=== PATIENT | male | born 1945 | race Hispanic/Latino ===

== ENCOUNTER 2017-04-02 08:57 | Day surgery (SDC) | payer MEDICARE, BC ==
[2017-03-29 12:19] VITALS: BMI 28.3
[2017-04-02] MEDS ORDERED: Sodium Chloride 0.9% 1,000 ML IV SCH (10:00)
[2017-04-02] MEDS ORDERED: Propofol 10 mg/ml Inj (20 ML) ONE (10:45)
[2017-04-02 12:55] VITALS: BP 126/81; PULSE 81; RESP 16; TEMP 97.5; O2SAT 99
== END 2017-04-02 13:08 | disposition home or self-care (01) ==
LOC: ENDO 08:57
PROVIDERS: ATTEND Internal Medicine Gastroenterology
DX: K57.30 Diverticulosis of large intestine without perforation or abscess without bleeding (principal); K64.8 Other hemorrhoids; E11.9 Type 2 diabetes mellitus without complications; I10 Essential (primary) hypertension
CPT/HCPCS: 45378; 82948; J2001; J2704; J7040

== ENCOUNTER 2017-07-19 15:16 | Emergency (ER) | payer MEDICARE, BC ==
[2017-07-19 15:35] VITALS: RESP 18; TEMP 98.2
[2017-07-19 15:38] VITALS: BMI 27.9
[2017-07-19] MEDS ORDERED: Sodium Chloride 0.9% 500 ML IV STA (16:06)
[2017-07-19 16:24] LABS: BASO # 0.04 K/mm3 (0.0-2.0); EOS # 0.1 (0.0-0.7); EOS % 3.5 % (1.5-5.0); GRAN # 2.43 (1.4-6.5); GRAN % 60.4 % (50.0-68.0); HEMOGLOBIN 13.1 g/dL (14.0-18.0); LYMPH % 24.4 % (22.0-35.0); MEAN CORPUSCULAR HGB CONC 34.4 g/dl (31.0-37.0); MEAN PLATELET VOLUME 9.6 fl (7.0-11.0); MONO # 0.4 (0.1-0.6); MONO % 10.7 % (1.0-6.0); RBC 3.85 10^6/uL (3.5-6.1); RED CELL DISTRIBUTION WIDTH 13.6 % (11.5-14.5)
[2017-07-19 16:40] LABS: ALB/GLOB RATIO 1.5 (1.1-1.8); ALBUMIN 4.2 g/dL (3.0-4.8); ALT/SGPT 49 U/L (7-56); AST/SGOT 35 U/L (17-59); BLOOD UREA NITROGEN 12 mg/dL (7-21); CALCIUM 9.7 mg/dL (8.4-10.5); GFR AFRICAN-AMERICAN > 60; GFR NON-AFRICAN AMERICAN > 60; LIPASE 122 U/L (23-300)
--- NOTE | 2017-07-19 16:42 | ED PDOC ---
Arrival/HPI - General Chief Complaint: Abdominal Pain Time Seen by Provider: 07/19/17 16:06 Historian: Patient - History of Present Illness Narrative History of Present Illness (Text): 07/19/17 16:25 A 71 year old male, whose past medical history includes hiatal hernia and diabetes, presents to the emergency department for a burning epigastric sensation that normally occurs after eating, he also notes occasional nausea and vomiting. The patient reports to seeing his PMD for similar symptoms, and was told that his symptoms can be for gastritis and he was told to take Zantac and zofran. The patient discovered 3 years ago that he has a hiatal hernia after a endoscopy. The patient notes he had a colonoscopy in March, results show the patient had internal hemorrhoids and small scattered diverticula. The patient admits he has a scheduled endoscopy in a week. The patient denies any dysuria, chest pain, back pain, diarrhea, fever, cough, or any other complaints at this time. Dr. Savannah Brandt Time/Duration: > month (> 2 months (around )) Symptom Onset: Gradual Symptom Course: Unchanged, Intermittent Quality: Cramping, Burning Severity Level: Mild Activities at Onset: Light, Eating Context: Home, Work Past Medical History - Provider Review Nursing Documentation Reviewed: Yes - Cardiac Hx Pacemaker: No - Neurological Hx Paralysis: No - Endocrine/Metabolic Hx Diabetes Mellitus Type 2: Yes - Hematological/Oncological Hx Blood Transfusions: No Hx Blood Transfusion Reaction: No - Musculoskeletal/Rheumatological Hx Musculoskeletal Disorders: No - Psychiatric Hx Emotional Abuse: No Hx Physical Abuse: No Hx Substance Use: No - Anesthesia Hx Anesthesia Reactions: No Hx Malignant Hyperthermia: No - Suicidal Assessment Feels Threatened In Home Enviroment: No Family/Social History - Physician Review Nursing Documentation Reviewed: Yes Family/Social History: No Known Family HX Smoking Status: Never Smoked Hx Alcohol Use: No Hx Substance Use: No Allergies/Home Meds Allergies/Adverse Reactions: Allergies No Known Allergies Allergy (Verified 07/19/17 15:37) Home Medications: Home Meds Medication Instructions Recorded Confirmed [id number] 1 tab PO QAM 03/29/17 07/19/17 Aspirin [Adult Low Dose Aspirin EC] 81 mg PO QAM 03/29/17 07/19/17 Atorvastatin [Lipitor] 10 mg PO DIN 03/29/17 07/19/17 Ferrous Sulfate [High Potency Iron] 0 mg PO QAM 03/29/17 07/19/17 Glipizide [Glucotrol] 10 mg PO QAM 03/29/17 07/19/17 Multivitamin [Daily [place]] 1 tab PO QAM 03/29/17 07/19/17 Omeprazole 40 mg PO M 03/29/17 07/19/17 Pramipexole [Mirapex] 1 mg PO BID 03/29/17 07/19/17 Primidone [Mysoline] 50 mg PO HS 03/29/17 07/19/17 Quetiapine Fumarate [Seroquel] 50 mg PO HS 03/29/17 07/19/17 Review of Systems - Physician Review All systems were reviewed & negative as marked: Yes - Review of Systems Constitutional: absent: Fevers Respiratory: absent: Cough Cardiovascular: absent: Chest Pain Gastrointestinal: Abdominal Pain, Nausea, Vomiting. absent: Diarrhea Genitourinary Male: absent: Dysuria Musculoskeletal: absent: Back Pain Physical Exam Vital Signs Reviewed: Yes Vital Signs Temp Pulse Resp BP Pulse Ox 07/19/17 20:47 95 H 18 138/94 H 99 07/19/17 19:30 92 H 18 146/90 98 07/19/17 17:17 94 H 18 145/96 H 97 07/19/17 15:35 98.2 F 103 H 18 149/106 H 97 Temperature: Afebrile Blood Pressure: Hypertensive Pulse: Tachycardic Respiratory Rate: Normal Appearance: Positive for: Well-Appearing, Non-Toxic, Comfortable Pain Distress: None Mental Status: Positive for: Alert and Oriented X 3 - Systems Exam Head: Present: Atraumatic, Normocephalic Pupils: Present: PERRL Extroacular Muscles: Present: EOMI Conjunctiva: Present: Normal Mouth: Present: Moist Mucous Membranes Neck: Present: Normal Range of Motion Respiratory/Chest: Present: Clear to Auscultation, Good Air Exchange. No: Respiratory Distress, Accessory Muscle Use Cardiovascular: Present: Regular Rate and Rhythm, Normal S1, S2. No: Murmurs Abdomen: Present: Normal Bowel Sounds. No: Tenderness, Distention, Peritoneal Signs Back: Present: Normal Inspection Upper Extremity: Present: Normal Inspection. No: Cyanosis, Edema Lower Extremity: Present: Normal Inspection. No: Edema Neurological: Present: GCS=15, CN II-XII Intact, Speech Normal Skin: Present: Warm, Dry, Normal Color. No: Rashes Psychiatric: Present: Alert, Oriented x 3, Normal Insight, Normal Concentration Medical Decision Making ED Course and Treatment: 07/19/17 16:44 Impression: A 71 year old male with burning sensation in epigastric region Differential Diagnosis included but are not limited to: Plan: -- Chest X-ray -- Abdomen Ultrasound -- Labs -- Zofran, Protonix, IV Fluids -- Urinalysis -- Reassess and disposition Progress Notes: EKG : NSR at 72 bpm, (-) acute ST changes, as read by WYATT. CXR : NAD, as read by PA Lab results reviewed and are within normal limits. Ultrasound of the abdomen reveals cholelithiasis with no evidence of acute cholecystitis. On reevaluation, patient reports that his symptoms are improving, however continues to have mild burning sensation to the epigastric area with no nausea, no CP, no SOB or back pain. On exam, patient is resting comfortably in no acute distress, abdomen remains soft with no tenderness, no guarding, no rebound, negative Starks sign. diagnostic results discussed the patient in great detail. given GI cocktail PO. Case discussed with Dr. Bourgeois and Dr. Cain, both agree with outpatient follow-up. Instructed to follow up with primary care physician in 1-2 days without fail. Advised to take medication as prescribed and continue zantac. Return to the emergency room at any time for any new or worsening symptoms. Patient states he fully agrees with and understands discharge instructions. States that he agrees with the plan and disposition. Verbalized and repeated discharge instructions and plan. I have given the patient opportunity to ask any additional questions. - Lab Interpretations Lab Results: 07/19/17 16:00 07/19/17 16:00 Lab Results 07/19/17 16:40: Urine Color Yellow, Urine Appearance Clear, Urine pH 8.0, Ur Specific [place] 1.015, Urine Protein Negative, Urine Glucose (UA) Negative, Urine Ketones Negative, Urine Blood Negative, Urine Nitrate Negative, Urine Bilirubin Negative, Urine Urobilinogen 0.2, Ur Leukocyte Esterase Trace H, Urine RBC 0 - 2, Urine WBC 0 - 2, Ur Epithelial Cells None, Urine Bacteria Neg 07/19/17 16:00: Sodium 140, Potassium 4.1, Chloride 101, Carbon Dioxide 30, Anion Gap 13, BUN 12, Creatinine 0.8, Est GFR ( Amer) > 60, Est GFR (Non- Af Amer) > 60, Random Glucose 106, Calcium 9.7, Total Bilirubin 0.4, AST 35, ALT 49, Alkaline Phosphatase 73, Troponin I < 0.01, Total Protein 7.1, Albumin 4.2, Globulin 2.8, Albumin/Globulin Ratio 1.5, Lipase 122 07/19/17 16:00: PT 11.4, INR 1.04, APTT 27.5 07/19/17 16:00: WBC 4.0 L, RBC 3.85, Hgb 13.1 L, Hct 38.1 L, MCV 99.0, MCH 34.0 , MCHC 34.4, RDW 13.6, Plt Count 206, MPV 9.6, Gran % 60.4, Lymph % (Auto) 24.4 , Mcleod % (Auto) 10.7 H, Eos % (Auto) 3.5, Baso % (Auto) 1.0, Gran # 2.43, Lymph # 1.0 L, Mcleod # 0.4, Eos # 0.1, Baso # 0.04 - RAD Interpretation Narrative RAD Interpretations (Text): 07/19/17 18:05 US abdomen : FINDINGS: Liver: A brief color and pulsed Doppler examination of the portal vein was performed showing normal hepatopedal flow. No intrahepatic bile duct dilation. Gallbladder: Several small gallstones are noted posteriorly in the contracted gallbladder. No gallbladder wall thickening or pericholecystic fluid identified. The sonographic Starks sign is negative. Common bile duct: Unremarkable as visualized. No stones. No dilation. Pancreas: The pancreas is obscured by bowel gas. Kidneys: Unremarkable. No stones. No solid mass. No hydronephrosis. Spleen: Unremarkable. No splenomegaly. Aorta: Unremarkable. No aneurysm. Inferior vena cava: Unremarkable. IMPRESSION: Limitations as above. Cholelithiasis. Dictated and Authenticated by: Boston Marcelo MD 07/19/2017 5:27 PM Eastern Time ([place] & [place]) Radiology Orders: 07/19/17 16:06 CHEST PORTABLE [RAD] Stat ABDOMEN COMPLETE [US] Stat - Medication Orders Current Medication Orders: Discontinued Medications Al Hydrox/Mg Hydrox/Simethicone (Maalox Plus 30 Ml) 30 ml PO STAT STA Stop: 07/19/17 18:50 Last Admin: 07/19/17 20:18 Dose: 30 ml Belladonna/Phenobarbital ( Elixir) 5 ml PO STAT STA Stop: 07/19/17 18:50 Last Admin: 07/19/17 20:19 Dose: 5 ml Sodium Chloride (Sodium Chloride 0.9%) 500 mls @ 1,000 mls/hr IV .Q30M STA Stop: 07/19/17 16:35 Last Admin: 07/19/17 16:34 Dose: 1,000 mls/hr eMAR Start Stop Document 07/19/17 16:34 SF (Rec: 07/19/17 16:34 SF [id number]) Intravenous Solution Start Date 07/19/17 Start Time 16:34 End Date 07/19/17 End time 17:05 Total Infusion Time 31 Lidocaine HCl (Lidocaine 2% Viscous) 15 ml PO ONCE ONE Stop: 07/19/17 18:50 Last Admin: 07/19/17 20:19 Dose: 15 ml Ondansetron HCl (Zofran Inj) 4 mg IVP STAT STA Stop: 07/19/17 16:07 Last Admin: 07/19/17 16:34 Dose: 4 mg IVP Administration Document 07/19/17 16:34 SF (Rec: 07/19/17 16:34 [id number]) Charges for Administration # of IVP Administrations 1 Pantoprazole Sodium (Protonix Inj) 40 mg IVP STAT STA Stop: 07/19/17 16:08 Last Admin: 07/19/17 16:34 Dose: 40 mg IVP Administration Document 07/19/17 16:34 SF (Rec: 07/19/17 16:34 [id number]) Charges for Administration # of IVP Administrations 1 - PA / ROOF BOLTER / Resident Statement MD/DO has reviewed & agrees with the documentation as recorded. - Scribe Statement The provider has reviewed the documentation as recorded by the Susanibcarlos Gonzalez Provider Scribe Attestation: All medical record entries made by the Scribe were at my direction and personally dictated by me. I have reviewed the chart and agree that the record accurately reflects my personal performance of the history, physical exam, medical decision making, and the department course for this patient. I have also personally directed, reviewed, and agree with the discharge instructions and disposition. Disposition/Present on Arrival - Present on Arrival Any Indicators Present on Arrival: No History of DVT/PE: No History of Uncontrolled Diabetes: No Urinary Catheter: No History of Decub. Ulcer: No History Surgical Site Infection Following: None - Disposition Have Diagnosis and Disposition been Completed?: Yes Diagnosis: Abdominal pain, Dyspepsia Disposition: HOME/ ROUTINE Disposition Time: 19:30 Patient Plan: Discharge Condition: IMPROVED Discharge Instructions (ExitCare): Chronic Indigestion (ED), Acute Abdominal Pain (ED) Print Language: YORUBA Additional Instructions: Thank you for letting us take care of you today. You were treated for abdominal pain, dyspepsia. The emergency medical care you received today was directed at your acute symptoms. If you were prescribed any medication, please fill it and take as directed. It may take several days for your symptoms to resolve. Return to the Emergency Department if your symptoms worsen, do not improve, or if you have any other problems. Please contact your pmd and GI doctor in 2 days for re-evaluation and follow up. Bring any paperwork you were given at discharge with you along with any medications you are taking to your follow up visit. Our treatment cannot replace ongoing medical care by a primary care provider (PCP) outside of the emergency department. Thank you for allowing the [facility] team to be part of your care today. Prescriptions: Atropine/Hyoscyamine [] 1 tab PO TID PRN #20 tab PRN Reason: Dyspepsia Forms: TYFFON (Greenlandic)
[2017-07-19 16:47] LABS: URINE BILIRUBIN NEGATIVE (NEGATIVE); URINE BLOOD NEGATIVE (NEGATIVE); URINE GLUCOSE (UA) NEGATIVE (NEGATIVE); URINE LEUKOCYTE ESTERASE TRACE Leu/uL (NEGATIVE); URINE NITRATE NEGATIVE (NEGATIVE); URINE PROTEIN NEGATIVE mg/dL (<30 mg/dL); URINE UROBILINOGEN 0.2 E.U./dL (<1 E.U./dL)
[2017-07-19 16:51] LABS: TROPONIN I < 0.01 ng/mL
[2017-07-19 16:54] LABS: URINE APPEARANCE CLEAR (CLEAR); URINE COLOR YELLOW (YELLOW)
[2017-07-19 16:59] LABS: INR 1.04 (0.93-1.08); PARTIAL THROMBOPLASTIN TIME 27.5 Seconds (25.1-36.5); PROTHROMBIN TIME 11.4 SECONDS (9.4-12.5)
[2017-07-19 17:10] LABS: URINE BACTERIA NEG (NEG); URINE RBC 0 - 2 /hpf (0-2); URINE WBC 0 - 2 /hpf (0-6)
--- NOTE | 2017-07-19 18:00 | RAD ---
HISTORY: Epigastric pain COMPARISON: No prior. FINDINGS: LUNGS: No active pulmonary disease. Questionable few tiny granulomata right upper lung field PLEURA: No significant pleural effusion identified, no pneumothorax apparent. CARDIOVASCULAR: Normal. OSSEOUS STRUCTURES: No significant abnormalities. VISUALIZED UPPER ABDOMEN: Normal. OTHER FINDINGS: None. IMPRESSION: No active disease. Questionable few tiny granulomata right upper lung field.
[2017-07-19] MEDS ORDERED: Alum-Mag Hydrox-Simethicone Susp (30 mL) PO STA (18:49)
[2017-07-19] MEDS ORDERED: Atrop/Hyosc/Scopal/PB Elixir (120 ml) PO STA (18:49)
[2017-07-19 20:48] VITALS: BP 138/94; PULSE 95; O2SAT 99
--- NOTE | 2017-07-20 08:02 | US ---
HISTORY: Epigastric pain COMPARISON: None. TECHNIQUE: Sonographic evaluation of the abdomen. FINDINGS: LIVER: Measures approximately 17.2 cm in CC dimension. Liver demonstrates relatively smooth contour and normal echotexture. No obvious hepatic masses or collections seen on images presented. . No gross intrahepatic biliary ductal dilatation. . GALLBLADDER: Gallbladder is appears incompletely distended which may in part account for thick-walled appearance. . Shadowing intraluminal gallbladder calculi. Gallbladder wall thickening may be due to incomplete distention however possibility of inflammatory process not excluded. COMMON BILE DUCT: Measures 4.9 mm. . No stones. No dilatation. PANCREAS: Pancreas not visualized due to body habitus and bowel gas RIGHT KIDNEY: Right kidney measures approximately 11.0 x 4.5 x 5.4 cmcm. Normal echogenicity. No calculus, mass, or hydronephrosis. LEFT KIDNEY: Left kidney measures approximately 11.5 x 5.2 x 7.1cm. Normal echogenicity. No calculus, mass, or hydronephrosis. SPLEEN: Normal in size and contour. No mass. AORTA: No aneurysmal dilatation. IVC: Unremarkable. OTHER FINDINGS: None. IMPRESSION: Cholelithiasis. . Gallbladder is contracted which may in part account for thick-walled appearance however possibility of inflammatory process not excluded.
--- NOTE | 2017-07-20 09:49 | CARD ---
APPROVED REPORT EKG Measurement Heart [id number] <Conclusion> Normal sinus rhythm Normal ECG
== END 2017-07-19 20:47 | disposition home or self-care (01) ==
LOC: ED 15:16
DX: R10.13 Epigastric pain (principal); E11.9 Type 2 diabetes mellitus without complications
CPT/HCPCS: 71045; 76700; 80053; 81001; 83690; 84484; 85025; 85610; 85730; 87086; 93005; 96361; 96374; 96375; 99285; C9113; J2405; J7040

== ENCOUNTER 2017-09-29 02:14 | Emergency (ER) | payer MEDICARE, BC ==
[2017-09-29 02:16] VITALS: BMI 27.9
[2017-09-29 02:35] VITALS: BP 139/99; PULSE 100; RESP 18; TEMP 97.8; O2SAT 96
--- NOTE | 2017-09-29 02:53 | ED PDOC ---
Arrival/HPI - General Chief Complaint: Lower Extremity Problem/Injury Time Seen by Provider: 09/29/17 02:36 Historian: Patient - History of Present Illness Narrative History of Present Illness (Text): 09/29/17 02:50 Jg Iglesias is a 72 year old male, whose past medical history includes diabetes, who presents to the emergency department s/p toe nail in the right great toe combing off. Patient wants to get checked out. Patient denies any fever, chills, chest pain, shortness of breath, nausea, vomiting, diarrhea, back pain, neck pain, headache, dizziness, or any other complaints. Time/Duration: Prior to Arrival Symptom Onset: Sudden Symptom Course: Unchanged Activities at Onset: Light Context: Home Past Medical History - Provider Review Nursing Documentation Reviewed: Yes - Cardiac Hx Cardiac Disorders: No Hx Pacemaker: No - Pulmonary Hx Respiratory Disorders: No - Neurological Hx Neurological Disorder: No Hx Paralysis: No - HEENT Hx HEENT Disorder: No - Endocrine/Metabolic Hx Diabetes Mellitus Type 2: Yes - Hematological/Oncological Hx Blood Disorders: No Hx Blood Transfusions: No - Integumentary Hx Dermatological Disorder: No - Musculoskeletal/Rheumatological Hx Musculoskeletal Disorders: No - Gastrointestinal Hx Gastrointestinal Disorders: No - Genitourinary/Gynecological Hx Genitourinary Disorders: No - Psychiatric Hx Anxiety: Yes Hx Emotional Abuse: No Hx Physical Abuse: No Hx Substance Use: No - Anesthesia Hx Anesthesia Reactions: No - Suicidal Assessment Feels Threatened In Home Enviroment: No Family/Social History - Physician Review Nursing Documentation Reviewed: Yes Family/Social History: Unknown Family HX Smoking Status: Never Smoked Hx Alcohol Use: No Hx Substance Use: No Allergies/Home Meds Allergies/Adverse Reactions: Allergies penicillamine Allergy (Verified 09/29/17 02:37) RASH Home Medications: Home Meds Medication Instructions Recorded Confirmed Aspirin [Adult Low Dose Aspirin EC] 81 mg PO QPM 03/29/17 07/23/17 Quetiapine Fumarate [Seroquel] 50 mg PO HS 03/29/17 07/23/17 Amlodipine/Valsartan [Exforge 1 tab PO QAM 07/22/17 07/23/17 10-320 mg Tablet] Atorvastatin [Lipitor] 10 mg PO DIN 07/22/17 07/23/17 Ferrous Sulfate [Feosol] 325 mg PO DAILY 07/22/17 07/23/17 Glipizide [Glipizide Xl] 10 mg PO QAM 07/22/17 07/23/17 LORazepam [Ativan] 0.5 mg PO BID 07/22/17 07/22/17 Multivit-Min/FA/Lycopen/Lutein 1 cap PO DAILY 07/22/17 07/23/17 [Centrum Silver Tablet] Pramipexole [Mirapex] 1 mg PO BID 07/22/17 07/22/17 Primidone [Mysoline] 50 mg PO BID 07/22/17 07/23/17 Ranitidine HCl [Zantac] 150 mg PO HS 07/22/17 07/23/17 Dicyclomine [Dicyclomine HCl] 10 mg PO TID PRN 07/23/17 07/23/17 Omeprazole 40 mg PO DAILY 07/23/17 07/23/17 Review of Systems - Physician Review All systems were reviewed & negative as marked: Yes - Review of Systems Constitutional: Normal Eyes: Normal ENT: Normal Respiratory: Normal. absent: SOB, Cough Cardiovascular: Normal. absent: Chest Pain Gastrointestinal: Normal. absent: Abdominal Pain, Diarrhea, Nausea, Vomiting Genitourinary Male: Normal. absent: Dysuria, Frequency, Hematuria, Urinary Output Changes Musculoskeletal: Normal. absent: Back Pain, Neck Pain Skin: Other (toe nail darline rt great toe missing). absent: Rash Neurological: Normal. absent: Headache, Dizziness Endocrine: Normal Hemo/Lymphatic: Normal Psychiatric: Normal Physical Exam Vital Signs Reviewed: Yes Vital Signs Temp Pulse Resp BP Pulse Ox 09/29/17 02:32 97.8 F 100 H 18 139/99 H 96 Temperature: Afebrile Blood Pressure: Normal Pulse: Tachycardic Respiratory Rate: Normal Appearance: Positive for: Well-Appearing, Non-Toxic, Comfortable Pain Distress: None Mental Status: Positive for: Alert and Oriented X 3 - Systems Exam Head: Present: Atraumatic, Normocephalic Pupils: Present: PERRL Extroacular Muscles: Present: EOMI Conjunctiva: Present: Normal Mouth: Present: Moist Mucous Membranes Neck: Present: Normal Range of Motion Respiratory/Chest: Present: Clear to Auscultation, Good Air Exchange. No: Respiratory Distress, Accessory Muscle Use Cardiovascular: Present: Regular Rate and Rhythm, Normal S1, S2. No: Murmurs Abdomen: Present: Normal Bowel Sounds. No: Tenderness, Distention, Peritoneal Signs Back: Present: Normal Inspection Upper Extremity: Present: Normal Inspection. No: Cyanosis, Edema Lower Extremity: Present: Other (avulsion of nail rt foot great toe , no evidence of infection). No: Edema Neurological: Present: GCS=15, CN II-XII Intact, Speech Normal Skin: Present: Warm, Dry, Normal Color, Other (toe nail on rt big toe missing). No: Rashes Psychiatric: Present: Alert, Oriented x 3, Normal Insight, Normal Concentration Medical Decision Making ED Course and Treatment: 09/29/17 02:56 Impression: 72 year old male who presents to the emergency department for a check up s/p the toe nail on the rt great big toe missing. Differential Diagnosis included but are not limited to: Plan: -- Cipro -- Reassess and disposition Progress Notes:local wound care to are by myself will tx with ab and dc 10/02/17 12:06 - Medication Orders Current Medication Orders: Discontinued Medications Ciprofloxacin (Cipro) 500 mg PO ONCE STA PRN Reason: Protocol Stop: 09/29/17 02:51 Last Admin: 09/29/17 03:02 Dose: 500 mg - Scribe Statement The provider has reviewed the documentation as recorded by the Scribe Documented by Alejandra Bolanos acting as a scribe for Dominick Gimenez MD. Disposition/Present on Arrival - Present on Arrival Any Indicators Present on Arrival: No History of DVT/PE: No History of Uncontrolled Diabetes: No Urinary Catheter: No History of Decub. Ulcer: No History Surgical Site Infection Following: None - Disposition Have Diagnosis and Disposition been Completed?: Yes Diagnosis: Nail avulsion, toe Disposition: HOME/ ROUTINE Disposition Time: 03:10 Condition: GOOD Discharge Instructions (ExitCare): Toe Injury (DC) Prescriptions: Ciprofloxacin HCl [Cipro] 250 mg PO BID #14 tablet Forms: [employer]reme (Mozambican)
== END 2017-09-29 03:08 | disposition home or self-care (01) ==
LOC: ED 02:14
DX: S91.201A Unspecified open wound of right great toe with damage to nail, initial encounter (principal); X58.XXXA Exposure to other specified factors, initial encounter; Y92.9 Unspecified place or not applicable

== ENCOUNTER 2017-10-19 06:56 | Day surgery (SDC) | payer MEDICARE, BC ==
[2017-10-19 07:37] VITALS: BMI 27.3
[2017-10-19] MEDS ORDERED: Propofol 10 mg/ml Inj (20 ML) ONE (08:43)
[2017-10-19] MEDS ORDERED: Sodium Chloride 0.9% 1,000 ML IV SCH (10:15)
[2017-10-19 10:35] VITALS: PULSE 72; RESP 14; TEMP 97.1; O2SAT 100
[2017-10-19 11:17] VITALS: BP 140/70
== END 2017-10-19 11:07 | disposition home or self-care (01) ==
LOC: ENDO 06:56
PROVIDERS: ATTEND Internal Medicine Gastroenterology
DX: K29.50 Unspecified chronic gastritis without bleeding (principal); K22.70 Barrett's esophagus without dysplasia; K44.9 Diaphragmatic hernia without obstruction or gangrene; K31.84 Gastroparesis; T18.2XXA Foreign body in stomach, initial encounter; Z87.11 Personal history of peptic ulcer disease
CPT/HCPCS: 43239; 88305; 88312; 88342; J2001; J2704; J7040 ×2

== ENCOUNTER 2018-12-17 22:33 | Emergency (ER) | payer MEDICARE, BC ==
[2018-12-17 22:33] VITALS: BMI 27.3
[2018-12-17 22:49] VITALS: RESP 18; TEMP 98
[2018-12-17] MEDS ORDERED: Iohexol 240 (50 ml) ONE (23:08)
--- NOTE | 2018-12-17 23:13 | ED PDOC ---
Arrival/HPI - General Historian: Patient - History of Present Illness Narrative History of Present Illness (Text): 12/17/18 23:04 73yo male with pmhx of radha's esophagus who present with complaint of abdominal pain, described as "gas pain" and nausea x 3days. Patient states he had history of same pain in the past that resolved and then started again 3days ago. States he usually gets nauseous when he wakes up in the morning. States he had endoscopy last month and was told everything is fine. his last colonoscopy was March 2017 and it was normal. He denies melena, hematemesis, hematochezia, chest pain, SOB, urinary symptoms, any other complaint. <Siobhan Amin A - Last Filed: 12/18/18 01:56> <Jg Rosado - Last Filed: 12/18/18 03:45> - General Chief Complaint: GI Problem Past Medical History - Provider Review Nursing Documentation Reviewed: Yes - Cardiac Hx Pacemaker: No - Pulmonary Hx Respiratory Disorders: No - Neurological Hx Paralysis: No - HEENT Hx HEENT Disorder: No - Endocrine/Metabolic Hx Diabetes Mellitus Type 2: Yes - Hematological/Oncological Hx Blood Transfusions: No Hx Blood Transfusion Reaction: No - Integumentary Hx Dermatological Disorder: No - Musculoskeletal/Rheumatological Hx Musculoskeletal Disorders: No - Gastrointestinal Hx Gastrointestinal Disorders: Yes Hx Gastrointestinal Ulcer: Yes Other/Comment: endoscopy 09/17/18 - Genitourinary/Gynecological Hx Genitourinary Disorders: No - Psychiatric Hx Emotional Abuse: No Hx Physical Abuse: No Hx Substance Use: No - Anesthesia Hx Anesthesia Reactions: No Hx Malignant Hyperthermia: No - Suicidal Assessment Feels Threatened In Home Enviroment: No <Siobhan Amin A - Last Filed: 12/18/18 01:56> Family/Social History - Physician Review Nursing Documentation Reviewed: Yes Family/Social History: Unknown Family HX Smoking Status: Never Smoked Hx Alcohol Use: No Hx Substance Use: No <Siobhan Amin A - Last Filed: 12/18/18 01:56> Allergies/Home Meds <Siobhan Amin A - Last Filed: 12/18/18 01:56> <Jg Rosado - Last Filed: 12/18/18 03:45> Allergies/Adverse Reactions: Allergies Penicillins Allergy (Verified 12/17/18 23:29) RASH Home Medications: Home Meds Medication Instructions Recorded Confirmed Amlodipine Bes/Olmesartan Med 1 each PO DAILY 12/17/18 12/17/18 [Amlodipine-Olmesartan 10-20 mg] Aspirin [Ecotrin] 81 mg PO DAILY 12/17/18 12/17/18 Atorvastatin [Lipitor] 10 mg PO DIN 12/17/18 12/17/18 Dicyclomine [Dicyclomine HCl] 10 mg PO BID PRN 12/17/18 12/17/18 Ferrous Fumarate [Thai-Sequel] 324 mg PO DAILY 12/17/18 12/17/18 GlipiZIDE [Glipizide] 10 mg PO DAILY 12/17/18 12/17/18 LORazepam [Ativan] 0.5 mg PO BID 12/17/18 12/17/18 Multivit-Min/FA/Lycopen/Lutein 1 each PO DAILY 12/17/18 12/17/18 [Centrum Silver Men Tablet] Omeprazole 40 mg PO DAILY 12/17/18 12/17/18 Primidone [Mysoline] 50 mg PO DAILY 12/17/18 12/17/18 QUEtiapine [SEROquel] 25 mg PO BID 12/17/18 12/17/18 Quetiapine Fumarate [Seroquel] 100 mg PO HS 12/17/18 12/17/18 Ranitidine HCl [Zantac] 150 mg PO DAILY 12/17/18 12/17/18 hydroCHLOROthiazide [Hydrodiuril] 25 mg PO DAILY 12/17/18 12/17/18 Review of Systems - Physician Review All systems were reviewed & negative as marked: Yes - Review of Systems Constitutional: Normal Eyes: Normal ENT: Normal Respiratory: Normal Cardiovascular: Normal Gastrointestinal: Abdominal Pain, Nausea. absent: Constipation, Diarrhea, Vomiting, Hematochezia, Hematemesis Genitourinary Male: Normal Musculoskeletal: Normal Skin: Normal Neurological: Normal Endocrine: Normal Hemo/Lymphatic: Normal Psychiatric: Normal <DircocoHappiness A - Last Filed: 12/18/18 01:56> Physical Exam Vital Signs Reviewed: Yes Vital Signs Temp Pulse Resp BP Pulse Ox 12/17/18 22:46 98.0 F 70 18 132/78 96 Temperature: Afebrile Blood Pressure: Normal Pulse: Regular Respiratory Rate: Normal Appearance: Positive for: Well-Appearing, Non-Toxic, Comfortable Pain Distress: None Mental Status: Positive for: Alert and Oriented X 3 - Systems Exam Head: Present: Atraumatic, Normocephalic Pupils: Present: PERRL Extroacular Muscles: Present: EOMI Conjunctiva: Present: Normal Mouth: Present: Moist Mucous Membranes Neck: Present: Normal Range of Motion Respiratory/Chest: Present: Clear to Auscultation, Good Air Exchange. No: Respiratory Distress, Accessory Muscle Use Cardiovascular: Present: Regular Rate and Rhythm, Normal S1, S2. No: Murmurs Abdomen: Present: Tenderness (Mild tenderness over lower abdomen), Normal Bowel Sounds. No: Distention, Peritoneal Signs, Rebound, Guarding, McBurney's Point Tender, Rovsing's Sign Present Back: Present: Normal Inspection Upper Extremity: Present: Normal Inspection. No: Cyanosis, Edema Lower Extremity: Present: Normal Inspection. No: Edema Neurological: Present: GCS=15, CN II-XII Intact, Speech Normal Skin: Present: Warm, Dry, Normal Color. No: Rashes Psychiatric: Present: Alert, Oriented x 3, Normal Insight, Normal Concentration <Siobhan Amin A - Last Filed: 12/18/18 01:56> Vital Signs Temp Pulse Resp BP Pulse Ox 12/17/18 22:46 98.0 F 70 18 132/78 96 <Jg Rosado - Last Filed: 12/18/18 03:45> Medical Decision Making ED Course and Treatment: 12/18/18 01:52 73yo ,a;e who present with complaint of abdominal pain, described as "gas pain" PT appear comfortable in ED. His pain likely secondary to gastritis. He notes that he takes Prilosec in AM, Zantac at night and dicylomine He had negative Endoscopy last month and negative Colonoscopy 2yrs ago. Labs Abdominal CT Pepcid Labs was reviewed and negative Abdominal CT pending Case endorsed to Dr. Rosado to f/u CT and dispo pt - RAD Interpretation Radiology Orders: 12/17/18 23:00 ABD PELVIS PO & IV CONTRAST [CT] Stat - Medication Orders Current Medication Orders: Famotidine (Pepcid) 20 mg IVP STAT STA Stop: 12/17/18 23:01 <Siobhan Amin A - Last Filed: 12/18/18 01:56> ED Course and Treatment: 12/18/18 03:10 CT Abdomen and Pelvis IMPRESSION: Cholelithiasis without acute cholecystitis. Moderate sliding hiatal hernia. Underdistended sigmoid colon. Electronically signed on Dec 18, 2018 2:27:07 AM EDT by: Kevin Bruce M.D., Certified by [facility], MS[facility], Neuroradiology - Lab Interpretations Lab Results: PT 12.5 SECONDS (9.4-12.5) 12/17/18 23:10 INR 1.13 12/17/18 23:10 APTT 30.2 Seconds (26.9-38.3) 12/17/18 23:10 Total Bilirubin 0.5 mg/dL (0.2-1.3) 12/17/18 23:10 AST 33 U/L (17-59) 12/17/18 23:10 ALT 38 U/L (7-56) 12/17/18 23:10 Alkaline Phosphatase 65 U/L (38-126) 12/17/18 23:10 Total Protein 6.6 g/dL (5.8-8.3) 12/17/18 23:10 Albumin 3.9 g/dL (3.0-4.8) 12/17/18 23:10 Globulin 2.7 gm/dL 12/17/18 23:10 Albumin/Globulin Ratio 1.5 (1.1-1.8) 12/17/18 23:10 Amylase 69 U/L (35-125) 12/17/18 23:10 Lipase 140 U/L (23-300) 12/17/18 23:10 - RAD Interpretation Radiology Orders: 12/17/18 23:00 ABD PELVIS PO & IV CONTRAST [CT] Stat - Medication Orders Current Medication Orders: Discontinued Medications Famotidine (Pepcid) 20 mg IVP STAT STA Stop: 12/17/18 23:01 Last Admin: 12/17/18 23:44 Dose: 20 mg IVP Administration Document 12/17/18 23:44 MA (Rec: 12/17/18 23:44 CRISTIAN [id number]) Charges for Administration # of IVP Administrations 1 <Jg Rosado - Last Filed: 12/18/18 03:45> - PA / DISTRICT OPERATIONS MANAGER / Resident Statement / has reviewed & agrees with the documentation as recorded. / has examined the patient and agrees with the treatment plan. <Jg Rosado - Last Filed: 12/18/18 03:45> Disposition/Present on Arrival - Present on Arrival Any Indicators Present on Arrival: No History of DVT/PE: No History of Uncontrolled Diabetes: No Urinary Catheter: No History of Decub. Ulcer: No History Surgical Site Infection Following: None - Disposition Have Diagnosis and Disposition been Completed?: Yes <Siobhan Amin - Last Filed: 12/18/18 01:56> - Present on Arrival Any Indicators Present on Arrival: No - Disposition Have Diagnosis and Disposition been Completed?: Yes Disposition Time: 03:39 Patient Plan: Discharge <Jg Rosado - Last Filed: 12/18/18 03:45> - Disposition Diagnosis: Abdominal pain, Dyspepsia Disposition: HOME/ ROUTINE Patient Problems: Current Active Problems Problem Status Onset Abdominal pain Acute Gastritis Acute Condition: GOOD Discharge Instructions (ExitCare): Dyspepsia (DC) Additional Instructions: Avoid fatty/greasy foods/take meds as prescribed/follow up with this week Prescriptions: Simethicone [Mylicon Chew Tab] 80 mg PO TID PRN #24 tab.chew PRN Reason: Dyspepsia Referrals: Kitty Mack MD [Primary Care Provider] - Follow up with primary Forms: [employer] (German)
[2018-12-17 23:30] LABS: BASO # 0.03 K/mm3 (0.0-2.0); BASO % 0.7 % (0.0-3.0); EOS # 0.2 (0.0-0.7); EOS % 3.6 % (1.5-5.0); HEMOGLOBIN 12.3 g/dL (14.0-18.0); LYMPH # 1.6 (1.2-3.4); LYMPH % 38.2 % (22.0-35.0); MEAN CELL VOLUME 98.1 fl (80.0-105.0); MEAN CORPUSCULAR HEMOGLOBIN 33.3 pg (25.0-35.0); MEAN PLATELET VOLUME 9.7 fl (7.0-11.0); MONO # 0.5 (0.1-0.6); MONO % 11.9 % (1.0-6.0); RBC 3.69 10^6/uL (3.5-6.1); WHITE BLOOD COUNT 4.2 10^3/uL (4.5-11.0)
[2018-12-17 23:37] LABS: INR 1.13; PARTIAL THROMBOPLASTIN TIME 30.2 Seconds (26.9-38.3); PROTHROMBIN TIME 12.5 SECONDS (9.4-12.5)
[2018-12-17 23:42] LABS: ALB/GLOB RATIO 1.5 (1.1-1.8); ALBUMIN 3.9 g/dL (3.0-4.8); ALT/SGPT 38 U/L (7-56); AMYLASE 69 U/L (35-125); AST/SGOT 33 U/L (17-59); BLOOD UREA NITROGEN 18 mg/dL (7-21); CALCIUM 9.3 mg/dL (8.4-10.5); GFR NON-AFRICAN AMERICAN 46; LIPASE 140 U/L (23-300)
[2018-12-17 23:53] LABS: TROPONIN I < 0.01 ng/mL
[2018-12-18 00:13] LABS: CK-MB 7.8 ng/mL (0.0-3.6)
[2018-12-18 00:19] LABS: URINE BILIRUBIN NEGATIVE (NEGATIVE); URINE BLOOD NEGATIVE (NEGATIVE); URINE GLUCOSE (UA) NEGATIVE (NEGATIVE); URINE LEUKOCYTE ESTERASE NEGATIVE Leu/uL (NEGATIVE); URINE PROTEIN NEGATIVE mg/dL (<30 mg/dL); URINE UROBILINOGEN 0.2 E.U./dL (<1 E.U./dL)
[2018-12-18 00:33] LABS: URINE APPEARANCE CLEAR (CLEAR); URINE COLOR YELLOW (YELLOW)
[2018-12-18] MEDS ORDERED: Iohexol 350 MG/100 ML VIAL ONE (01:03)
[2018-12-18 03:18] VITALS: BP 123/79; PULSE 76; O2SAT 99
--- NOTE | 2018-12-18 09:43 | CARD ---
APPROVED REPORT Date of service: 12/17/2018 EKG Measurement Heart [id number] <Conclusion> Sinus rhythm with 1st degree AV block Otherwise normal ECG
--- NOTE | 2018-12-18 12:04 | CT ---
Date of service: 12/18/2018 PROCEDURE: CT Abdomen and Pelvis without intravenous contrast HISTORY: abdominal pain COMPARISON: None. TECHNIQUE: Contiguous images were obtained from the domes of the diaphragms to the upper thighs without the administration of intravenous contrast. Oral contrast was administered. Radiation dose: Total exam DLP = 749.02 mGy-cm. This CT exam was performed using one or more of the following dose reduction techniques: Automated exposure control, adjustment of the mA and/or kV according to patient size, and/or use of iterative reconstruction technique. FINDINGS: LOWER THORAX: Unremarkable. LIVER: Unremarkable. No gross lesion or ductal dilatation. GALLBLADDER AND BILE DUCTS: Calcified cholelithiasis within a contracted gallbladder. PANCREAS: Unremarkable. No gross lesion or ductal dilatation. SPLEEN: Unremarkable. ADRENALS: Unremarkable. No mass. KIDNEYS AND URETERS: Bilateral extrarenal pelvises. No hydronephrosis. No solid mass. VASCULATURE: Unremarkable. No aortic aneurysm. No aortic atherosclerotic calcification or mural plaque present. BOWEL: Moderate hiatal hernia. No obstruction. No gross mural thickening. APPENDIX: No findings to suggest acute appendicitis. PERITONEUM: Unremarkable. No free fluid. No free air. LYMPH NODES: Unremarkable. No enlarged lymph nodes. BLADDER: Unremarkable. REPRODUCTIVE: Prostatomegaly. BONES: No acute fracture. OTHER FINDINGS: None. IMPRESSION: No acute abdominal pelvic pathology. Multiple nonacute findings as above.
== END 2018-12-18 04:00 | disposition home or self-care (01) ==
LOC: ED 22:33
DX: R10.13 Epigastric pain (principal); E11.9 Type 2 diabetes mellitus without complications
CPT/HCPCS: 74176; 80053; 81003; 82150; 82550; 82553; 83605; 83615; 83690; 84484; 85025; 85610; 85730; 87040; 93005; 96374; 99283; Q9966; Q9967